=== PATIENT | female | born 1950 | race Hispanic/Latino ===

== ENCOUNTER 2016-09-26 07:31 | Day surgery (SDC) | payer MEDICARE ==
[2016-09-18 14:36] VITALS: BMI 23.6
[2016-09-26] MEDS ORDERED: Lactated Ringer's 1,000 ML IV SCH (08:04)
[2016-09-26] MEDS ORDERED: Propofol 10 mg/ml Inj (20 ML) ONE (08:26)
[2016-09-26 10:18] VITALS: O2SAT 99
[2016-09-26 10:56] VITALS: BP 116/67; PULSE 64; RESP 16; TEMP 98
== END 2016-09-26 10:55 | disposition home or self-care (01) ==
LOC: ENDO 07:31
PROVIDERS: ATTEND Specialist
DX: K57.30 Diverticulosis of large intestine without perforation or abscess without bleeding (principal); K63.3 Ulcer of intestine; K64.8 Other hemorrhoids; K55.9 Vascular disorder of intestine, unspecified; Z86.010 Personal history of colon polyps
CPT/HCPCS: 45380; 87324; 88305; J2001; J2704; J7040; J7120